=== PATIENT | female | born 1965 | race Native Hawaiian/Other Pacific Islander ===

== ENCOUNTER 2017-01-18 11:45 | Emergency (ER) | payer OTHER ==
[~2017-01-18] VITALS: Ht 172.7 cm; Wt 68.0 kg
[2017-01-18 13:14] LABS: PLATELET COUNT 150 K/uL (152-353)
[2017-01-18 13:31] LABS: POTASSIUM 3.8 mmol/L (3.6-5.2); SODIUM 138 mmol/L (136-145)
[2017-01-18 22:58] VITALS: BP 132/74; TEMP 98.4
== END 2017-01-18 23:09 | disposition short-term general hospital (02) ==
LOC: ED 11:45
PROVIDERS: Emergency Medicine
DX: L03.211 Cellulitis of face (principal); L03.213 Periorbital cellulitis; H57.11 Ocular pain, right eye
CPT/HCPCS: 36415; 80053; 85027; 96368; 96374; 96375; 99284; J0744; J1885; J2270; J2405; J3370

== ENCOUNTER 2017-01-18 23:00 | Outpatient (CLI) | payer OTHER | END 2017-01-19 00:35 | disposition short-term general hospital (02) | LOC: AMB 23:00 | DX: L03.211 Cellulitis of face (principal); L03.213 Periorbital cellulitis; H57.11 Ocular pain, right eye | CPT/HCPCS: A0425; A0427 ==

== ENCOUNTER 2023-06-22 11:00 | Outpatient (CLI) | payer OTHER | END 2023-06-22 19:28 | disposition home or self-care (01) | LOC: MAMMO 11:00 | PROVIDERS: ATTEND Family Medicine | DX: M79.641 Pain in right hand (principal); Z12.31 Encounter for screening mammogram for malignant neoplasm of breast ==

== ENCOUNTER 2023-08-03 14:31 | Outpatient (CLI) | payer OTHER | END 2023-08-03 19:07 | disposition home or self-care (01) | LOC: RESP 14:31 | PROVIDERS: ATTEND Family Medicine | DX: F17.210 Nicotine dependence, cigarettes, uncomplicated (principal); R05.9 Cough, unspecified; Z79.899 Other long term (current) drug therapy ==